=== PATIENT | female | born 1980 | race African-American/Black ===

== ENCOUNTER 2017-01-15 17:40 | Emergency (ER) | payer MEDICARE, MEDICAID ==
[~2017-01-15] VITALS: Ht 160 cm; Wt 71.8 kg
[~2017-01-15 17:40] MED LIST: ASCO10004 PO; ASCO100072 PO; CHOL20003 PO; ESCI10TA PO; GARL500C PO; IBUP800T PO; L.AC1CAP6 PO; OXYC-302 PO; VITA1CAP3 PO; VITA1TAB28 PO
[2017-01-15 17:47] VITALS: BP 120/78
[2017-01-15] MEDS ORDERED: KETOROLAC 30 MG/1 ML IM ONE (18:30)
[2017-01-15] MEDS ORDERED: KETOROLAC 30 MG/1 ML ONE (19:07)
[2017-01-15] MEDS ORDERED: BACITRACIN ZINC OINT 500U/GM, 0.9 GM ONE (19:11)
== END 2017-01-15 19:55 | disposition home or self-care (01) ==
LOC: ED 19:30
DX: M54.12 Radiculopathy, cervical region (principal)
CPT/HCPCS: 72050; 96372; 99284; J1885

== ENCOUNTER 2017-01-23 17:22 | Emergency (ER) | payer MEDICARE, MEDICAID ==
[~2017-01-23] VITALS: Ht 149.9 cm; Wt 72.8 kg
[2017-01-23 19:01] LABS: ASPARTATE AMINO TRANSFERASE 17 U/L (15-37); BLOOD UREA NITROGEN 7 mg/dL (7-18)
[2017-01-23 19:44] VITALS: BP 118/76
== END 2017-01-23 20:53 | disposition home or self-care (01) ==
LOC: ED 18:36
DX: N83.291 Other ovarian cyst, right side (principal); R10.2 Pelvic and perineal pain
CPT/HCPCS: 36415; 76830; 80053; 81003; 84703; 85025; 87210; 87491; 87591; 87808; 99285

== ENCOUNTER 2017-02-03 12:07 | Emergency (ER) | payer MEDICARE, MEDICAID ==
[~2017-02-03] VITALS: Ht 149.9 cm; Wt 72.4 kg
[2017-02-03 12:09] VITALS: BP 119/70
[2017-02-03] MEDS ORDERED: SODIUM CHLORIDE 0.9% 1,000ML IVBOLUS ONE (12:30)
[2017-02-03] MEDS ORDERED: SODIUM CHLORIDE FLUSH 10ML SYR IVF ONE (12:30)
[2017-02-03 13:09] LABS: BLOOD UREA NITROGEN 11 mg/dL (7-18)
== END 2017-02-03 16:08 | disposition home or self-care (01) ==
LOC: ED 15:45
DX: N83.201 Unspecified ovarian cyst, right side (principal); R10.2 Pelvic and perineal pain; Z98.51 Tubal ligation status
CPT/HCPCS: 36415; 76830; 80048; 82040; 84703; 85025; 99285

== ENCOUNTER 2019-02-06 10:43 | Emergency (ER) | payer MEDICARE, MEDICAID ==
[~2019-02-06] VITALS: Ht 149.9 cm; Wt 78.2 kg
[~2019-02-06 10:43] MED LIST changes: +CHOL2000 PO; -CHOL20003 PO; +IBUP-1223 PO; -IBUP800T PO
--- NOTE | 2019-02-06 11:22 | NUR ---
TAKEN TO RAD
[2019-02-06 11:28] LABS: BASOPHILS # (AUTO) 0.03 x10^3/uL (0-0.1); BASOPHILS % (AUTO) 0 % (0-1); EOSINOPHILS # (AUTO) 0.08 x10^3/uL (0-0.4); EOSINOPHILS % (AUTO) 1 % (1-7); LYMPHOCYTES # (AUTO) 1.92 x10^3/uL (1-3.4); LYMPHOCYTES % (AUTO) 26 % (22-44); MD NO; MEAN CORPUSCULAR HEMOGLOBIN 29.5 pg (27.0-34.8); MEAN CORPUSCULAR VOLUME 92.1 fL (80-100); MEAN PLATELET VOLUME 7.5 fL (7.4-10.4); MONOCYTES # (AUTO) 0.38 x10^3/uL (0.2-0.8); MONOCYTES % (AUTO) 5 % (2-9); NEUTROPHILS # (AUTO) 5.03 x10^3/uL (1.8-6.8); NEUTROPHILS % (AUTO) 68 % (42-75); PLATELET COUNT 327 x10^3/uL (130-400); RED CELL DISTRIBUTION WIDTH 13.4 % (9.6-15.2)
--- NOTE | 2019-02-06 11:30 | NUR ---
PT PRESENTING TO ER FOR COUGH AND SOB X3 DAYS, STATES PRODUCTIVE BUT CLEAR SPUTUM. CONNECTED TO ALL MONITORING, VSS. FAMILY AT BEDSIDE. PIT ORDERS RECEIVED. MD AT BEDSIDE FOR ASSESSMENT. CALL LIGHT WITHIN REACH
[2019-02-06 11:41] LABS: ALBUMIN 4.2 g/dL (3.4-5.0); ANION GAP 6 mmol/L (5-15); CALCIUM 9.1 mg/dL (8.5-10.1); CHLORIDE 106 mmol/L (98-107); CREATININE 0.82 mg/dL (0.55-1.02)
[2019-02-06 11:45] LABS: TROPONIN I < 0.015 ng/mL (0.000-0.045)
[2019-02-06 12:21] VITALS: BP 122/73
--- NOTE | 2019-02-06 12:21 | NUR ---
ALL RESULTS BACK AT THIS TIME, CHART UP FOR RECHECK
== END 2019-02-06 12:49 | disposition home or self-care (01) ==
LOC: ED 12:43
DX: R42 Dizziness and giddiness (principal); B34.9 Viral infection, unspecified; R68.83 Chills (without fever); F32.9 Major depressive disorder, single episode, unspecified; G89.29 Other chronic pain
CPT/HCPCS: 36415; 71046; 80048; 82040; 83880; 84484; 85025; 93005; 99284

== ENCOUNTER 2019-03-07 19:06 | Emergency (ER) | payer MEDICARE, MEDICAID ==
[~2019-03-07] VITALS: Ht 149.9 cm; Wt 79.1 kg
--- NOTE | 2019-03-07 19:23 | NUR ---
Pt presents to ed c/o generalized tingling since tuesday. Neuro fully intact otherwise. Denies any cp/sob. Denies any increased stress in life. +N since tuesday. Denies any abd pain or further gi/gu s/s. Monitoring applied. Call light within reach.
[2019-03-07 19:30] LABS: BASOPHILS # (AUTO) 0.03 x10^3/uL (0-0.1); BASOPHILS % (AUTO) 0 % (0-1); EOSINOPHILS # (AUTO) 0.12 x10^3/uL (0-0.4); EOSINOPHILS % (AUTO) 1 % (1-7); LYMPHOCYTES % (AUTO) 24 % (22-44); MD NO; MEAN CORPUSCULAR HEMOGLOBIN 30.6 pg (27.0-34.8); MEAN CORPUSCULAR HGB CONC 33.4 g/dL (32.4-35.8); MEAN CORPUSCULAR VOLUME 91.7 fL (80-100); MEAN PLATELET VOLUME 7.6 fL (7.4-10.4); MONOCYTES # (AUTO) 0.55 x10^3/uL (0.2-0.8); MONOCYTES % (AUTO) 5 % (2-9); NEUTROPHILS # (AUTO) 7.91 x10^3/uL (1.8-6.8); NEUTROPHILS % (AUTO) 70 % (42-75); PLATELET COUNT 354 x10^3/uL (130-400); RED BLOOD COUNT 4.99 x10^6/uL (3.82-5.3); RED CELL DISTRIBUTION WIDTH 13.3 % (9.6-15.2)
[2019-03-07 19:40] LABS: ALBUMIN 4.1 g/dL (3.4-5.0); ANION GAP 6 mmol/L (5-15); CALCIUM 9.1 mg/dL (8.5-10.1); CHLORIDE 104 mmol/L (98-107)
[2019-03-07 19:45] LABS: CREATININE 0.87 mg/dL (0.55-1.02); TROPONIN I < 0.015 ng/mL (0.000-0.045)
[2019-03-07 20:17] VITALS: BP 130/88
--- NOTE | 2019-03-07 20:18 | NUR ---
Pt resting comfortably on gurney. Angelan. Call light within reach.
--- NOTE | 2019-03-07 20:38 | NUR ---
All results back. Pt up for recheck. Given warm blanket for comfort.
--- NOTE | 2019-03-07 20:58 | NUR ---
[facility]. Awaiting d/c paperwork.
== END 2019-03-07 21:24 | disposition home or self-care (01) ==
LOC: ED 20:39
DX: R20.2 Paresthesia of skin (principal); R11.0 Nausea; F31.9 Bipolar disorder, unspecified; G89.29 Other chronic pain
CPT/HCPCS: 36415; 71045; 80048; 82040; 84443; 84484; 84703; 85025; 93005; 99284